=== PATIENT | female | born 1990 | race African-American/Black ===

== ENCOUNTER 2016-11-13 14:35 | Emergency (ER) | payer OTHER ==
[~2016-11-13] VITALS: Ht 167.6 cm; Wt 81.7 kg
[~2016-11-13 14:35] MED LIST: NOHOMEMEDICATIONS; REGLAN 5 MG TAB5 M1 PO
[2016-11-13] MEDS ORDERED: HYDROCODONE-AP1 EAC6 PO (16:16)
[2016-11-13] MEDS ORDERED: BACTRIM DS TAB1 EACH PO (16:16)
[2016-11-13 16:38] VITALS: BP 118/79
== END 2016-11-13 16:39 | disposition home or self-care (01) ==
LOC: ER 14:35
DX: N75.0 Cyst of Bartholin's gland (principal); J45.909 Unspecified asthma, uncomplicated

== ENCOUNTER 2016-11-16 19:18 | Emergency (ER) | payer OTHER ==
[~2016-11-16] VITALS: Ht 157.5 cm; Wt 77.1 kg
[~2016-11-16 19:18] MED LIST changes: +BACTRIM DS TAB1 EACH PO; +HYDROCODONE-AP1 EAC6 PO
[2016-11-16 19:19] VITALS: BP 141/92
== END 2016-11-16 20:12 | disposition home or self-care (01) ==
LOC: ER 19:18
DX: Z48.01 Encounter for change or removal of surgical wound dressing (principal); J45.909 Unspecified asthma, uncomplicated; F10.99 Alcohol use, unspecified with unspecified alcohol-induced disorder

== ENCOUNTER 2017-01-31 22:53 | Emergency (ER) | payer OTHER ==
[~2017-01-31] VITALS: Ht 157.5 cm; Wt 79.4 kg
[2017-01-31 22:56] VITALS: BP 147/96
[2017-01-31] MEDS ORDERED: CIPRODEX OTIC7.5 ML OTIC (23:30)
== END 2017-01-31 23:51 | disposition home or self-care (01) ==
LOC: ER 22:53
DX: H61.22 Impacted cerumen, left ear (principal); H66.92 Otitis media, unspecified, left ear; J45.909 Unspecified asthma, uncomplicated; F10.99 Alcohol use, unspecified with unspecified alcohol-induced disorder